=== PATIENT | female | born 2000 | race Caucasian/White ===

== ENCOUNTER 2018-05-22 19:35 | Emergency (ER) | payer BC ==
--- NOTE | 2018-05-22 19:59 | EDPHY ---
H & P Time Seen by Provider: 05/22/18 19:48 HPI/ROS: CHIEF COMPLAINT: Syncope HISTORY OF PRESENT ILLNESS: 18-year-old female presents to the emergency department after having a witnessed syncopal episode just prior to arrival. The patient states that she was in the shower and she felt like her vision was going dark and then had a witnessed syncopal episode and fell out of the shower onto the floor. Her boyfriend was right next to her. No reported seizure activity. She complains of mild headache where she hit in the back of her head. Denies pain in her chest or difficulty breathing. She does admit to smoking marijuana earlier today. Denies any other substance abuse. She drank alcohol last night. She denies visual changes now. No nausea or vomiting. No neck or back pain. No injury to upper or lower extremities. REVIEW OF SYSTEMS: Constitutional: No fever, no chills. Eyes: No double or blurry vision. ENT: No sore throat. Respiratory: No cough, no shortness of breath. Cardiac: No chest pain. Gastrointestinal: No abdominal pain, vomiting or diarrhea. Genitourinary: No dysuria. Musculoskeletal: No neck or back pain. Skin: No rashes. Neurological: headache. Past Medical/Surgical History: Negative Social History: Single, visiting from [place] Smoking Status: Never smoked Physical Exam: General Appearance: Alert, no distress. Mentating normally and answering questions appropriately. Small palpable hematoma to the occiput of the scalp. No palpable crepitus or evidence of depressed skull fracture. No abrasion or puncture wound. No laceration. Eyes: Pupils equal and round. Extraocular motions are all intact. ENT: Mouth: Mucous membranes moist. Respiratory: No wheezing, rhonchi, or rales, lungs are clear to auscultation. Cardiovascular: Regular rate and rhythm. Gastrointestinal: Abdomen is soft and nontender, no masses, no rebound or guarding, bowel sounds normal. Neurological: Alert and oriented x 3, cranial nerves II through XII grossly intact Skin: Warm and dry, no rashes. Musculoskeletal: Nontender to palpate along the cervical, thoracic or lumbar spine. Neck is supple. Extremities: Full range of motion and no peripheral edema. Psychiatric: Patient is oriented X 3, there is no agitation. Constitutional: Initial Vital Signs Temperature (C) 36.7 C 05/22/18 19:38 Heart Rate 59 L 05/22/18 19:38 Respiratory Rate 18 05/22/18 19:38 Blood Pressure 101/61 05/22/18 19:38 O2 Sat (%) 99 05/22/18 19:38 O2 Delivery Mode Room Air Allergies/Adverse Reactions: No Known Allergies Allergy (Unverified 05/22/18 19:37) Home Medications: Medication Instructions Recorded NK [No Known Home Meds] 05/22/18 Medical Decision Making ED Course/Re-evaluation: 18-year-old female presents to the emergency department after having a witnessed syncopal event. Laboratory studies were all within normal limits. EKG was unremarkable. The patient was monitored for over 2 hr in the emergency department. She was feeling much better. She is comfortable being discharged home. I discussed the pros and cons of CT imaging of her brain including radiation exposure and the patient declined CT scan. I think this is reasonable. I think the patient has a capacity to make this decision. She was instructed to return to the emergency department she developed headache, vomiting, altered mental status, or any other concerns. Differential Diagnosis: Syncope including but not limited to vasovagal syncope, arrhythmia, dehydration , and blood loss. Head injury including but not limited to concussion, skull fracture, intraparenchymal contusion, subarachnoid, subdural and epidural hematoma. - Data Points Laboratory Results: Laboratory Results 05/22/18 20:10 05/22/18 20:10 05/22/18 05/22/18 05/22/18 20:10 20:10 20:10 WBC 9.60 10^3/uL H 10^3/uL (3.80-9.50) RBC 4.06 10^6/uL L 10^6/uL (4.18-5.33) Hgb 12.9 g/dL g/dL (12.6-16.3) Hct 38.3 % % (38.0-47.0) MCV 94.3 fL fL (81.5-99.8) MCH 31.8 pg pg (27.9-34.1) MCHC 33.7 g/dL g/dL (32.4-36.7) RDW 12.3 % % (11.5-15.2) Plt Count 214 10^3/uL 10^3/uL (150-400) MPV 10.8 fL fL (8.7-11.7) Neut % (Auto) 79.0 % H % (39.3-74.2) Lymph % (Auto) 14.7 % L % (15.0-45.0) [place] % (Auto) 5.0 % % (4.5-13.0) Eos % (Auto) 0.7 % % (0.6-7.6) Baso % (Auto) 0.3 % % (0.3-1.7) Nucleat RBC Rel Count 0.0 % % (0.0-0.2) Absolute Neuts (auto) 7.58 10^3/uL H 10^3/uL (1.70-6.50) Absolute Lymphs (auto) 1.41 10^3/uL 10^3/uL (1.00-3.00) Absolute Monos (auto) 0.48 10^3/uL 10^3/uL (0.30-0.80) Absolute Eos (auto) 0.07 10^3/uL 10^3/uL (0.03-0.40) Absolute Basos (auto) 0.03 10^3/uL 10^3/uL (0.02-0.10) Absolute Nucleated RBC 0.00 10^3/uL 10^3/uL (0-0.01) Immature Gran % 0.3 % % (0.0-1.1) Immature Gran # 0.03 10^3/uL 10^3/uL (0.00-0.10) Sodium 136 mEq/L mEq/L (135-145) Potassium 4.0 mEq/L mEq/L (3.3-5.0) Chloride 105 mEq/L mEq/L (97-110) Carbon Dioxide 25 mEq/l mEq/l (22-31) Anion Gap 6 mEq/L L mEq/L (8-16) BUN 19 mg/dL mg/dL (7-23) Creatinine 0.6 mg/dL mg/dL (0.6-1.0) Estimated GFR > 60 Glucose 89 mg/dL mg/dL (70-100) Calcium 9.2 mg/dL mg/dL (8.5-10.4) Beta HCG, Qual NEGATIVE Departure - Departure Disposition: Home, Routine, Self-Care Clinical Impression: Syncope Qualifiers: Syncope type: unspecified Qualified Code(s): R55 - Syncope and collapse Condition: Good Instructions: Syncope (ED), Head Injury (ED) Additional Instructions: Avoid any activity that might put you at risk for another head injury for at least 1 week. Return to the emergency department if you develop worsening headache, vomiting, altered mental status, or if you feel worse in any way. Referrals: Denisse Ospina [place] [place] - As per Instructions (Primary care provider diamond sander)
[2018-05-22 20:20] LABS: PLATELET COUNT 214 10^3/uL (150-400)
[2018-05-22 21:49] VITALS: BP 116/79
--- NOTE | 2018-05-24 11:10 | CPEKG ---
Heart Rate: 60 RR Interval: 1000 P-R Interval: 160 QRSD Interval: 90 QT Interval: 416 QTC Interval: 416 P [place]: 69 QRS [place]: 89 T Wave [place]: 23 EKG Severity - NORMAL ECG - EKG Impression: SINUS RHYTHM Electronically Signed By: Penny Flynn 24-May-2018 19:03:30
== END 2018-05-22 21:49 | disposition home or self-care (01) ==
DX: R55 Syncope and collapse (principal)

== ENCOUNTER 2018-09-10 13:30 | Emergency (ER) | payer BC ==
--- NOTE | 2018-09-10 14:39 | EDPHY ---
H & P Time Seen by Provider: 09/10/18 14:37 HPI/ROS: CHIEF COMPLAINT: Syncope yesterday, elevated D-dimer HISTORY OF PRESENT ILLNESS: Patient had syncope previously the and was seen in our ED on May 22. She had follow-up with Cardiology with a negative stress test and echocardiogram, here yesterday had an episode of syncope. She was standing at the smoke shop walking around and fell 30 sec before the event like she was going to pass out. She felt her vision was going black and she felt lightheaded like she was going to faint. She was caught by a friend was out for about 10-15 seconds. No seizure activity. No headache, chest pain, shortness of breath. No recent travel or immobilization. Today she feels fine and went to the [facility] and had a D-dimer that was 0.548 and was sent here. REVIEW OF SYSTEMS: Eye: no change in vision ENT: no sore throat Cardiac: HPI Pulmonary: no cough or SOB or hemoptysis. Abdomen: no vomiting, diarrhea, abdominal pain Musculoskeletal: no back pain Skin: no rash Neuro: no headache Constitutional: no fever : no urinary symptoms A comprehensive 10 point review of systems is otherwise negative aside from elements mentioned in the history of present illness. PAST MEDICAL HISTORY: Negative, stop control pills 5 days ago. Family history: Negative for venous thromboembolism, negative for DVT or PE or sudden cardiac at her age Social history: Student General Appearance: Alert and conversant, cooperative. Eyes: No scleral icterus. ENT, Mouth: Normal mucous membranes. Respiratory: Normal respiratory effort, breath sounds equal, lungs are clear to auscultation. Cardiovascular: Regular rate and rhythm. No murmur. Gastrointestinal: Abdomen is soft and non tender. Neurological: Alert, face symmetric, normal motor and sensory in extremities. Skin: Warm and dry, no rashes. Musculoskeletal: No peripheral edema. No calf tenderness. Psychiatric: Not agitated. Emergency Department course/MDM: EKG done at work today at 12:15 p.m. Was brought for my review by the patient. Sinus rhythm at a rate of 67 with normal intervals and a QT of 410, no dysrhythmia or ischemic changes. I do not think that needs to be repeated. Will repeat D-dimer,I offered to speak with her mother but the patient declined. 1526: D-dimer elevated, CTA discussed and consented. Does not clinically have evidence of DVT. 1557: Normal CTA per Dr. Diamond, no PE. Patient reassured. Stable for discharge. Smoking Status: Current every day smoker Constitutional: Initial Vital Signs Temperature (C) 36.8 C 09/10/18 13:45 Heart Rate 66 09/10/18 13:45 Respiratory Rate 17 09/10/18 13:45 Blood Pressure 111/75 09/10/18 13:45 O2 Sat (%) 93 09/10/18 13:45 O2 Delivery Mode Room Air Allergies/Adverse Reactions: No Known Allergies Allergy (Verified 09/10/18 13:45) Home Medications: Medication Instructions Recorded NK [No Known Home Meds] 05/22/18 Medical Decision Making - Diagnostics Imaging Results: Imaging Impressions Chest/Thorax CTA 09/10/18 15:07 Impression: No acute pulmonary embolus. Findings and recommendations discussed with OJ AGUILAR at 1556 hour, 2017. Imaging: Discussed imaging studies w/ call worker Radiologist Differential Diagnosis: Differential diagnosis considered for syncope including but not limited to vasovagal syncope, arrhythmia, dehydration, and blood loss. - Data Points Laboratory Results: Laboratory Results 09/10/18 14:37 09/10/18 14:37 09/10/18 09/10/18 09/10/18 14:37 14:37 14:37 WBC RBC Hgb Hct MCV MCH MCHC RDW Plt Count MPV Neut % (Auto) Lymph % (Auto) [place] % (Auto) Eos % (Auto) Baso % (Auto) Nucleat RBC Rel Count Absolute Neuts (auto) Absolute Lymphs (auto) Absolute Monos (auto) Absolute Eos (auto) Absolute Basos (auto) Absolute Nucleated RBC Immature Gran % Immature Gran # D-Dimer 0.57 ug/mLFEU H ug/mLFEU (0.00-0.50) Sodium 140 mEq/L mEq/L (135-145) Potassium 3.9 mEq/L mEq/L (3.3-5.0) Chloride 103 mEq/L mEq/L (97-110) Carbon Dioxide 29 mEq/l mEq/l (22-31) Anion Gap 8 mEq/L mEq/L (6-14) BUN 9 mg/dL mg/dL (7-23) Creatinine 0.7 mg/dL mg/dL (0.6-1.0) Estimated GFR > 60 Glucose 46 mg/dL L mg/dL (70-100) Calcium 9.7 mg/dL mg/dL (8.5-10.4) Beta HCG, Qual NEGATIVE 09/10/18 14:37 WBC 6.73 10^3/uL 10^3/uL (3.80-9.50) RBC 4.72 10^6/uL 10^6/uL (4.18-5.33) Hgb 14.6 g/dL g/dL (12.6-16.3) Hct 43.9 % % (38.0-47.0) MCV 93.0 fL fL (81.5-99.8) MCH 30.9 pg pg (27.9-34.1) MCHC 33.3 g/dL g/dL (32.4-36.7) RDW 12.2 % % (11.5-15.2) Plt Count 277 10^3/uL 10^3/uL (150-400) MPV 10.4 fL fL (8.7-11.7) Neut % (Auto) 64.4 % % (39.3-74.2) Lymph % (Auto) 28.7 % % (15.0-45.0) [place] % (Auto) 5.3 % % (4.5-13.0) Eos % (Auto) 1.2 % % (0.6-7.6) Baso % (Auto) 0.3 % % (0.3-1.7) Nucleat RBC Rel Count 0.0 % % (0.0-0.2) Absolute Neuts (auto) 4.33 10^3/uL 10^3/uL (1.70-6.50) Absolute Lymphs (auto) 1.93 10^3/uL 10^3/uL (1.00-3.00) Absolute Monos (auto) 0.36 10^3/uL 10^3/uL (0.30-0.80) Absolute Eos (auto) 0.08 10^3/uL 10^3/uL (0.03-0.40) Absolute Basos (auto) 0.02 10^3/uL 10^3/uL (0.02-0.10) Absolute Nucleated RBC 0.00 10^3/uL 10^3/uL (0-0.01) Immature Gran % 0.1 % % (0.0-1.1) Immature Gran # 0.01 10^3/uL 10^3/uL (0.00-0.10) D-Dimer Sodium Potassium Chloride Carbon Dioxide Anion Gap BUN Creatinine Estimated GFR Glucose Calcium Beta HCG, Qual Departure - Departure Disposition: Home, Routine, Self-Care Clinical Impression: Syncope Qualifiers: Syncope type: unspecified Qualified Code(s): R55 - Syncope and collapse Condition: Good Instructions: Syncope (ED) Additional Instructions: d-dimer elevated by CT angiography of your chest negative Referrals: JEVON DIAZ H,. [Clinic] - As per Instructions
[2018-09-10 14:53] LABS: PLATELET COUNT 277 10^3/uL (150-400)
[2018-09-10] MEDS ORDERED: IOPAMIDOL (ISOVUE 370) 100 ML BTL IV ONE ×2 (15:11→15:17)
--- NOTE | 2018-09-10 15:28 | CPEKG ---
Test Reason : OPEN Blood Pressure : / mmHG Vent. Rate : 053 BPM Atrial Rate : 053 BPM P-R Int : 155 ms QRS Dur : 087 ms QT Int : 433 ms P-R-T Axes : 052 086 038 degrees QTc Int : 407 ms Sinus rhythm Confirmed by Reece Fermin ([id number]) on 09/10/2018 3:27:52 PM Referred By: Confirmed By:Reece Fermin
[2018-09-10 16:16] VITALS: BP 123/65
== END 2018-09-10 16:16 | disposition home or self-care (01) ==
DX: R55 Syncope and collapse (principal)
CPT/HCPCS: Q9967

== ENCOUNTER 2019-03-07 11:29 | Emergency (ER) | payer BC ==
[2019-03-07] MEDS ORDERED: METOCLOPRAMIDE 10 MG/2 ML VIAL IVP ONE (12:22)
[2019-03-07] MEDS ORDERED: NS 1,000 ML IV ONE (12:22)
[2019-03-07] MEDS ORDERED: DEXAMETHASONE 10 MG/ML VIAL IVP ONE (12:22)
[2019-03-07] MEDS ORDERED: KETOROLAC 30 MG/1 ML SDV IVP ONE (12:22)
[2019-03-07 12:40] LABS: PLATELET COUNT 224 10^3/uL (150-400)
--- NOTE | 2019-03-07 12:47 | EDPHY ---
General - History Smoking Status: Current every day smoker Time Seen by Provider: 03/07/19 11:47 Narrative: CLINICAL IMPRESSION: Intermittent headache x2 weeks ASSESSMENT/PLAN: 19-year-old female presents to the emergency department with complaints of intermittent, waxing and waning left-sided headache over the last 2 weeks associated with phonophobia and photophobia. Patient currently describing a 10/ 10 headache. No associated closed head injury, neck stiffness or tightness, fever, neck injury, chiropractic adjustment, straining or lifting injury. She does not describe a thunderclap headache or sudden onset of the worst headache of her life. She has no meningeal findings. She is alert and oriented without focal neurological deficits, no ataxic gait. Patient's mother is requesting a CT scan which was read by Radiology as negative for acute intracranial hemorrhage. Low clinical suspicion for subarachnoid hemorrhage and meningitis. Patient received IV analgesics with complete resolution in her headache. I have encouraged her to follow up with primary care and Neurology, referrals were provided. Lab work is also reassuring. Patient is not . Low threshold for return to ED sooner for worsening symptoms as discussed in person and discharge papers. DIFFERENTIAL DX: Differential diagnosis for headache includes but not limited to subarachnoid hemorrhage, migraine headache, migraine variant headache, tension headache and infectious causes such as meningitis, pharyngitis and sinusitis. ED PROCEDURES: See lab and/or imaging results below ED COURSE: 12:45 p.m.: ED RN spoke with patient's mom who is demanding the patient have CT scan and MRI, and lab work. We have explained that we will start with and CT scan. I did have a long discussion with the patient regarding radiation exposure and risks. Patient denies . 2:10 p.m.: Discussed CT results with Dr. Ny. No acute abnormality identified. Incidental mucus retention cyst within the maxillary sinus. No evidence of acute sinusitis. CHIEF COMPLAINT: Headache HPI: 19-year-old female presents to the emergency department with complaints of intermittent, waxing and waning, left-sided headache over the last 2 weeks that seemed much worse today. Patient currently stating she is experiencing a 10/10 headache. No associated vomiting but has felt nauseous. She reports light and sound sensitivity. No reported history of migraines. She has never come to the emergency department for headaches before. She has had closed-head injuries in the past but nothing recent. No recent illness, fever, chills, neck stiffness or tightness. She had a prescription change to her contact lenses recently. No gait ataxia, dizziness, vertigo, weakness to extremities. There is a family history of migraines and a sister. Patient reports no heavy lifting, strenuous exercise or recent exertion. She does report she has had many years of exercise-induced shortness of breath, however has been cleared by Cardiology and recommended that she see pulmonology. She has not yet done this. She also has not seen a primary care doctor. PAST MEDICAL HISTORY: None reported See nurse/triage notes for additional history if applicable Pertinent Past Surgical History: None reported Family History: Sister with migraine Social History: Student at [employer], quit nicotine recently REVIEW OF SYSTEMS: All other systems negative Constitutional: No fever, no chills, appetite change. Eyes: No discharge, vision change ENT: No sore throat, congestion, ear pain. Cardiovascular: No chest pain, no palpitations. Respiratory: No cough, no shortness of breath. Gastrointestinal: No abdominal pain, positive for nausea, no vomiting, diarrhea. Musculoskeletal: No back pain, no neck pain, joint swelling, joint pain, myalgias. Skin: No rashes, color change. Neurological: Positive for headache, denies dizziness, denies weakness. PHYSICAL EXAM: General Appearance: Alert, oriented, appropriate, cooperative, NAD, well hydrated, non-toxic appearing, VSS, no hypoxia. Does not appear in significant distress HEENT: TMs are clear bilaterally no perforation or FB, no injection, no evidence of serous or mucopurulent otitis. Oropharynx clear is no erythema or exudates, no tonsillar hypertrophy or asymmetry. Dentition without abnormality. Eyes: PERRLA, no acute vision change, nystagmus, swelling, discharge, pain or photosensitivity. Conjunctiva pink, no pallor or injection Neck: Supple, nontender, no lymphadenopathy, no midline pain, FROM, no meningismus. Respiratory: There are no retractions, lungs are clear to auscultation. Cardiac: Regular rate and rhythm, no murmurs or gallops. Gastrointestinal: [Abdomen is soft, nontender Neurological: Alert and oriented x 3, CN 2-12 grossly intact, no limb ataxia DTR's intact, normal sensation and strength Skin: Warm, dry, no rashes, no nodules on palpation. Musculoskeletal: Extremities are symmetrical, full range of motion, no tenderness, deformity, swelling, or erythema. MEDICAL DECISION MAKING: Patient was seen independently. Secondary supervising physician at time of evaluation was Dr. Sinclair. Diagnosis: Headache. New, requires workup Summary: See Assessment and Plan for summary of ED visit Clinical lab tests: ordered / reviewed. Independent visualization of images, tracing, or specimens: Yes. Patient Progress: Improved, stable for discharge. (Aashish Clemente) Medical Decision Making: I did not see this patient while she was in the emergency department. However her care was discussed with the PA while the patient was in the department. I agree with treatment plan and management (James Sinclair) - Objective Vital Signs: Initial Vital Signs Temperature (C) 36.7 C 03/07/19 11:31 Heart Rate 56 L 03/07/19 11:31 Respiratory Rate 18 03/07/19 11:31 Blood Pressure 134/75 H 03/07/19 11:31 O2 Sat (%) 97 03/07/19 11:31 O2 Delivery Mode Room Air Allergies/Adverse Reactions: No Known Allergies Allergy (Verified 03/07/19 11:31) Home Medications: Medication Instructions Recorded NK [No Known Home Meds] 05/22/18 Laboratory Results: Laboratory Results 03/07/19 12:22 03/07/19 12:22 Medications Given: Discontinued Medications Dexamethasone (Decadron Injection) 10 mg IVP EDNOW ONE Stop: 03/07/19 12:23 Last Admin: 03/07/19 12:44 Dose: 10 mg Diphenhydramine HCl (Benadryl Injection) 25 mg IVP EDNOW ONE Stop: 03/07/19 12:23 Last Admin: 03/07/19 12:46 Dose: 25 mg Sodium Chloride (Ns) 1,000 mls @ 0 mls/hr IV ONCE ONE; Wide Open PRN Reason: Protocol Stop: 03/07/19 12:23 Last Admin: 03/07/19 12:41 Dose: 1,000 mls Ketorolac Tromethamine (Toradol) 15 mg IVP EDNOW ONE Stop: 03/07/19 12:23 Last Admin: 03/07/19 12:42 Dose: 15 mg Metoclopramide HCl (Reglan Injection) 10 mg IVP EDNOW ONE Stop: 03/07/19 12:23 Last Admin: 03/07/19 12:40 Dose: 10 mg Departure - Departure Disposition: Home, Routine, Self-Care Clinical Impression: Acute nonintractable headache Condition: Good Instructions: Acute Headache (ED) Additional Instructions: DISCHARGE INSTRUCTIONS FROM YOUR DOCTOR Thank you for visiting our emergency department today. You were treated by a physician pediatric physician assistant today and your case was reviewed with our ED Attending physician. Please keep in mind that discharge from the emergency department does not mean that there is nothing wrong - it simply means that we have not identified an emergency condition that requires further evaluation or treatment in the hospital. You should always plan to follow up with primary care for re- evaluation of your condition in the next 2-3 days. If you have been referred to a specialist, please call as soon as possible (today or tomorrow) to schedule your follow up appointment at the appropriate time. CT SCAN IN THE EMERGENCY DEPARTMENT TONIGHT SHOWED NO EVIDENCE OF ACUTE INTRACRANIAL HEMORRHAGE OR MASS. LAB WORK WAS REASSURING, NO EVIDENCE OF ANEMIA , ELECTROLYTE IMBALANCE, KIDNEY INSUFFICIENCY, OR ABNORMAL WHITE BLOOD CELL COUNT. WE DO NOT SUSPECT YOU HAVE MENINGITIS. WE HAVE GIVEN A REFERRAL TO NEUROLOGY IF HEADACHES PERSIST THEY MAY RECOMMEND AN OUTPATIENT MRI. PLEASE STAY WELL HYDRATED, EAT REGULAR MEALS, AND CONSIDER PRIMARY CARE FOLLOW-UP BOTH FOR HEADACHE MANAGEMENT WELL PULMONARY FUNCTION TESTING FOR EXERCISE- INDUCED SHORTNESS OF BREATH. RETURN TO THE EMERGENCY DEPARTMENT FOR SEVERE HEADACHE, ALTERED MENTAL STATUS, SEIZURE ACTIVITY, VERTIGO, INABILITY TO WALK, OR ANY OTHER CONCERNS. People present with illnesses and injuries in different ways, and it is always possible that we have missed something. You may always return for re-evaluation if symptoms worsen or if they are not improving or if you develop new/different symptoms. Again, thank you for choosing our emergency department. We hope that you feel better. Referrals: NONE *PRIMARY CARE P,. [Primary Care Provider] - As per Instructions Armani Clifford MD [Medical Doctor] - 1-2 days without fail Henrique Coronado MD [Medical Doctor] - 2-3 days without fail
[2019-03-07 14:30] VITALS: BP 124/70
== END 2019-03-07 14:29 | disposition home or self-care (01) ==
DX: R51 Headache (principal); E86.9 Volume depletion, unspecified
CPT/HCPCS: 96374; J1100; J1200; J1885; J2765